=== PATIENT | male | born 1985 | race Two or more races ===

== ENCOUNTER 2021-03-31 05:39 | Emergency (ER) | payer OTHER ==
[~2021-03-31] VITALS: Ht 167.6 cm; Wt 78.5 kg
[2021-03-31] MEDS ORDERED: DOLOGEN CAPLET1 EACH PO (08:10)
[2021-03-31] MEDS ORDERED: TUSNEL LIQUID178 ML PO (08:10)
[2021-03-31] MEDS ORDERED: MEDROLPACK PO (08:10)
== END 2021-03-31 08:16 | disposition home or self-care (01) ==
LOC: ER 05:39
DX: U07.1 COVID-19 (principal); B34.9 Viral infection, unspecified